=== PATIENT | female | born 1935 | race Caucasian/White ===

== ENCOUNTER → 2016-08-13 | Outpatient (CLI) | payer OTHER | LOC: ULTRA 09:04 | DX: R59.1 Generalized enlarged lymph nodes (principal) ==

== ENCOUNTER → 2016-08-27 | Outpatient (CLI) | payer OTHER ==
[~2016-08-27] MED LIST: CLONIDINE0.1 PO; DURLAZA162.5 MG PO; IBUPROFEN 600600 M1 PO; PRINIVIL20 MG PO
--- NOTE | ~2016-08-27 | CNG ---
[facility] Dara Devlin [place] [address] CYTO-NONGYN REPORT PROCEDURE Name: MARIYA SCHMID Room #: REG DELON MelloLeeannAnna.#: [id number] Admission: 08/27/16 Date of : 31 Discharge: Report #: [id number] Path Case #: [id number] CYTOPATHOLOGY REPORT COLLECTION DATE: 08/28/2016 RECEIVED DATE: 08/28/2016 SUBMITTING PHYS: Dr. Yadiel Ruelas OTHER PHYS: CLINICAL HISTORY: Right node groin, Concurrent biopsy [id number] and portion sent for flow cytometry (please refer to a separate reports) SPECIMEN(S) RECEIVED: A.Fine needle aspiration, Right lymph node * * * * * * * * * * * * FINAL DIAGNOSIS: A. Right lymph node, Fine needle aspiration: - No malignant epithelial cells identified. Paucicellular specimen with few scattered small lymphocytes present. PATHOLOGIST: Kamille Callahan M.D. REPORT ELECTRONICALLY SIGNED BY: Kamille Callahan M.D. DATE/TIME: 08/29/2016 16:16 * * * * * * * * * * * * GROSS PATHOLOGY: A. Fine needle aspiration, Right lymph node: The specimen is labeled "Mariya Schmid". Two mL of clear pink fluid. One ThinPrep slide was prepared from this material. (mm 08.28.2016) RN CORONARY CARE UNIT(S): [facility] Enrique(ASCP)IAC INITIAL CPT CODE(S): A; 17027 Professional services performed by [facility] at [facility] [address] , [place] [address] Technical services performed by [facility] at [address] [place] [address]., [address], [place] [address]. [facility] [address] [place] [address], [address] [place] [address] PHONE: [phone] [facility] [address] [place] [address] CYTO-NONGYN REPORT PROCEDURE Name: MARIYA SCHMID Room #: REG [facility].#: [id number] Admission: 08/27/16 Date of : 31 Discharge: Report #: [id number] Path Case #: [id number] DIRECTOR: Adryan Ortega M.D. * * * END OF REPORT * * *
--- NOTE | ~2016-08-27 | S ---
[facility] [address] [place] [address] SURGICAL PATH RPT PROCEDURE Name: MARIYA SCHMID Room #: REG [facility].#: [id number] Admission: 08/27/16 Date of : 31 Discharge: Report #: [id number] Path Case #: [id number] PATHOLOGY REPORT COLLECTION DATE: 08/27/2016 RECEIVED DATE: 08/28/2016 SUBMITTING PHYS: Dr. Yadiel Ruelas OTHER PHYS: Dr. Kathleen Fontana SPECIMEN(S) RECEIVED: A.Right node groin * * * * * * * * * * * * FINAL DIAGNOSIS: Lymph node, right node groin, ultrasound-guided needle core biopsy: - Reactive lymphoid follicles along with germinal centers in a background of extensive fibrosis. - Approximately 70% of the needle core biopsy showing fibrosis, as well as prominent vessels (please see comment). COMMENT: Examination shows lymphoid tissue with germinal centers, and follicles. The follicles are interspersed amongst large areas of fibrovascular connective tissue. . A small focus shows prominent vessels of various calibers along with fibrosis, and this may represent a partially sampled hemangioma There are no malignant epithelial cells or large atypical appearing lymphocytes identified histologically. Elliott-Wil cells are not identified. A portion of this lymph node was submitted for flow cytometric analysis and sent to [facility] ([id number]). It showed no flow immunophenotypic evidence of lymphoproliferative disorder. The specimen was of low cellularity which limited the flow cytometric evaluation. There was no B or T cell lymphoproliferative disorder identified in that specimen. Approximately 76% of the lymphoid cells were T cells, 26% of the lymphoid cells were mature B cells, and were polyclonal. Please see separate report for complete details. Please note sample represents a minute portion of an enlarged gland. Morphologically, although there are no atypical lymphoid cells or Elliott-Wil cells identified, an unsampled malignancy cannot be excluded due to the provided clinical history. In addition, the lymph node may also be partially involved. Clinical correlation is suggested along with an excisional biopsy if indicated. (IUV:mgr; d/t: 08/29/16) PATHOLOGIST: Kamille Callahan M.D. REPORT ELECTRONICALLY SIGNED BY: Kamille Callahan M.D. [address] [address] SURGICAL PATH RPT PROCEDURE Name: KATMARIYA Room #: REG [facility].#: [id number] Admission: 08/27/16 Date of : 31 Discharge: Report #: [id number] Path Case #: [id number] DATE/TIME: 08/29/2016 17:14 * * * * * * * * * * * * GROSS PATHOLOGY: Received in formalin labeled "Mariya Schmid, right node groin," are 4 distinct needle cores of [place] soft tissue ranging from 0.5 to 1.1 cm in length, which are submitted entirely in cassette A1. (KAH; 08/28/2016) CLINICAL HISTORY: Mildly prominent lymph nodes in the axilla, left and right groin regions, along with cortical replacement that was most prominent in the axillary region as well as the right groin region. PET scan evaluation showed abnormal PET scan, patient now undergoing ultrasound-guided needle core biopsy of the right groin. INITIAL CPT CODE(S): 32469 Professional services performed by [facility] at [facility] [address], [place] [address] Technical services performed by [facility] at [address] [place] [address], [address], [place] [address]. [facility] [place] [address] PHONE: [phone] DIRECTOR: Adryan Ortega M.D. * * * END OF REPORT * * *
== END | disposition home or self-care (01) ==
LOC: ULTRA 09:07
DX: I89.8 Other specified noninfective disorders of lymphatic vessels and lymph nodes (principal); R59.9 Enlarged lymph nodes, unspecified

== ENCOUNTER 2016-08-30 08:59 | Emergency (ER) | payer OTHER ==
[~2016-08-30] VITALS: Ht 162.6 cm; Wt 58.5 kg
[2016-08-30] MEDS ORDERED: CLONIDINE0.1 PO (09:27)
[2016-08-30] MEDS ORDERED: PRINIVIL20 MG PO (09:27)
[2016-08-30] MEDS ORDERED: DURLAZA162.5 MG PO (09:28)
[2016-08-30 10:45] LABS: HEMATOCRIT 35.4 % (37.0-47.0); HEMOGLOBIN 11.7 gm/dL (12.0-15.0); MCH 27.8 pg (26.0-34.0); MCHC 33.1 g/dL (28.0-37.0); MCV 84.2 fL (80.0-100.0); PLATELET COUNT 164 thou/uL (150-400); RDW 15.5 % (10.5-14.5); WBC 7.8 thou/uL (4.0-11.0)
[2016-08-30 10:52] LABS: MANUAL DIFF YES
[2016-08-30 10:53] LABS: CALCIUM 8.9 mg/dL (8.5-10.1); CREATININE 0.7 mg/dL (0.6-1.0); POTASSIUM 4.3 mmol/L (3.5-5.1)
[2016-08-30 10:55] LABS: URINE BILIRUBIN NEGATIVE (Negative); URINE BLOOD NEGATIVE (Negative); URINE COLOR YELLOW; URINE GLUCOSE-RANDOM* NEGATIVE (Negative); URINE KETONES NEGATIVE (Negative); URINE LEUKOCYTES-REFLEX NEGATIVE (Negative); URINE PROTEIN (DIPSTICK) NEGATIVE (Negative); URINE SPECIFIC GRAVITY >= 1.030 (1.003-1.035); URINE UROBILINOGEN 0.2 E.U./dl (0.2-1.0)
[2016-08-30 10:58] LABS: ALBUMIN 3.5 g/dL (3.4-5.0); TOTAL BILIRUBIN 0.5 mg/dL (<0.1-1.0); TOTAL PROTEIN 6.8 g/dL (6.4-8.2)
[2016-08-30] MEDS ORDERED: IBUPROFEN 600600 M1 PO (11:49)
[2016-08-30 11:58] VITALS: BP 121/61
[2016-08-30 11:59] LABS: ABSOLUTE NEUTROPHILS 6.3 thou/uL (1.4-8.2); TOTAL CELL COUNT 100
[2016-08-30 12:00] LABS: ANISOCYTOSIS SLIGHT; BURR CELLS OCCASIONAL; OVALOCYTES OCCASIONAL; POIKILOCYTOSIS SLIGHT
== END 2016-08-30 12:04 | disposition home or self-care (01) ==
LOC: ER 08:59
PROVIDERS: Physician Assistant
DX: G89.18 Other acute postprocedural pain (principal); R10.31 Right lower quadrant pain; I10 Essential (primary) hypertension